=== PATIENT | female | born 1975 | race Two or more races ===

== ENCOUNTER 2019-02-08 20:32 | Emergency (ER) | payer SELFPAY ==
[~2019-02-08] VITALS: Ht 149.9 cm; Wt 63.0 kg
[2019-02-09] MEDS ORDERED: HYDROCODONE/ACETAMINOPHEN 5/325MG TABLET PO ONE (05:30)
[2019-02-09] MEDS ORDERED: TETANUS, DIPHTHERIA, PERTUSSIS VAC/PF 0.5ML (>7YR OLD) IM ONE (05:30)
[2019-02-09 06:42] VITALS: BP 137/87
== END 2019-02-09 06:43 | disposition home or self-care (01) ==
LOC: ER 23:48
DX: S71.151A Open bite, right thigh, initial encounter (principal); W54.0XXA Bitten by dog, initial encounter; Y93.89 Activity, other specified; Y92.9 Unspecified place or not applicable
CPT/HCPCS: 73551; 90471; 90715; 99283; Z7610

== ENCOUNTER 2019-02-11 18:10 | Emergency (ER) | payer SELFPAY ==
[~2019-02-11] VITALS: Ht 149.9 cm; Wt 63.0 kg
[2019-02-11 18:47] VITALS: BP 125/80
[2019-02-11] MEDS ORDERED: BACITRACIN ZINC OINT UDPKT TOP ONE (21:15)
[2019-02-11] MEDS ORDERED: BACITRACIN 15GM TUBE TOP NR (21:30)
== END 2019-02-11 22:05 | disposition home or self-care (01) ==
LOC: ER 18:10
DX: S71.111D Laceration without foreign body, right thigh, subsequent encounter (principal); W54.0XXD Bitten by dog, subsequent encounter
CPT/HCPCS: 99283

== ENCOUNTER 2019-02-15 18:02 | Emergency (ER) | payer SELFPAY ==
[~2019-02-15] VITALS: Ht 149.9 cm; Wt 62.0 kg
[2019-02-15] MEDS ORDERED: BACITRACIN ZINC OINT UDPKT TOP ONE (19:30)
[2019-02-15] MEDS ORDERED: BACITRACIN 15GM TUBE TOP NR (19:45)
[2019-02-15 20:17] VITALS: BP 121/61
== END 2019-02-15 20:18 | disposition home or self-care (01) ==
LOC: ER 18:02
DX: S71.151D Open bite, right thigh, subsequent encounter (principal); W54.0XXD Bitten by dog, subsequent encounter
CPT/HCPCS: 99283